=== PATIENT | female | born 1945 | race Caucasian/White ===

== ENCOUNTER 2016-09-15 15:14 | Emergency (ER) | payer MEDICARE ==
[~2016-09-15 15:14] MED LIST: Sodium Chloride 0.9% 1,000 ML BAG ONE; Sodium Chloride 0.9% 100 ML BAG ONE
[2016-09-15] MEDS ORDERED: Morphine Sulfate 2 MG/ML SYRINGE ONE (16:09)
[2016-09-15] MEDS ORDERED: Ketorolac Tromethamine 30 MG/ML VIAL ONE (16:09)
[2016-09-15] MEDS ORDERED: cefTRIAXone\\ROCEPHIN 1 GM VIAL ONE (16:10)
[2016-09-15 16:11] LABS: #Basophils 0.2 thou/uL (0.0-0.2); #Eosinphils 0.4 thou/uL (0.0-0.7); #Lymphocytes 1.2 thou/uL (1.20-3.40); #Monocytes 1.1 thou/uL (0.11-0.59); #Neutrophils 7.6 thou/uL (1.40-6.50); %Basophils 1.5 % (0.0-1.0); %Eosinophils 3.6 % (0.0-10.0); %Lymphocytes 11.5 % (21.0-51.0); %Neutrophils 72.5 % (42.0-75.0); Hemoglobin 11.7 g/dL (12.0-16.0); Mean Corpuscular HGB CONC 34.4 g/dL (32.0-36.0); Mean Corpuscular Volume 95.9 fl (81.0-99.0); Mean Platelet Volume 7.6 fL (7.4-10.4); Platelet Count 316 thou/uL (130-400); RBC Distribution Width 12.2 % (11.5-14.5); Red Blood Cell (RBC) Count 3.55 mill/uL (4.20-5.40); White Blood Cell (WBC) Count 10.4 thou/uL (4.8-10.8)
--- NOTE | 2016-09-15 16:24 | RAD ---
SINGLE VIEW CHEST: Date: 09/15/16 COMPARISON: 06/27/16. HISTORY: Dyspnea. FINDINGS: Single view of the chest shows a normal sized cardiomediastinal silhouette. There is no evidence of consolidation, mass, or pleural effusion. The bones are unremarkable. IMPRESSION: No evidence of acute cardiopulmonary disease. POS: [facility]
[2016-09-15 16:26] LABS: ALT (SGPT) 20 U/L (0-55); AST (SGOT) 31 U/L (5-34); Albumin 3.7 g/dL (3.4-4.8); Alkaline Phosphatase 79 U/L (40-150); Anion Gap 18 mmol/L (10-20); BUN (Urea Nitrogen) 5 mg/dL (9.8-20.1); Bilirubin, Total 0.7 mg/dL (0.2-1.2); Calc. Creatinine Clearance 0 mL/min (70-130); Calcium 9.3 mg/dL (7.8-10.44); Carbon Dioxide 27 mmol/L (23-31); Chloride 95 mmol/L (98-107); Estimated GFR-MDRD 66; Globulin 2.5 g/dL (2.4-3.5); Glucose 100 mg/dL (83-110); Protein, Total 6.2 g/dL (5.8-8.1); Sodium 137 mmol/L (136-145)
--- NOTE | 2016-09-15 17:10 | ERRECORD ---
[facility] EMERGENCY RECORD HPI SORE THROAT (16:04 LLDO) CHIEF COMPLAINT: Patient presents for evaluation of sore throat, Patient presents for evaluation of pt had back surgery earlier this week and was intubated. now, 2-3 days later, has a very sore throat, sores on tongue, dry mouth, low grade fever, and some shortness of breath. HISTORIAN: History provided by patient, History provided by patient's family. LOCATION: Symptoms are generalized. QUALITY: Pain is dull in nature, described as aching, described as BURNING THROAT. SEVERITY: Maximum severity of symptoms moderate, Currently symptoms are moderate. TIME COURSE: Gradual onset of symptoms, Symptoms are worsening, are constant. ASSOCIATED WITH: Associated with fever, Associated with dysphagia. EXACERBATED BY: Patient's condition exacerbated by activity, Patient's condition exacerbated by food. RELIEVED BY: Patient's condition relieved by cold fluids. ROS CONSTITUTIONAL: Historian reports fatigue, reports fever, reports malaise, reports weakness. (16:21 LLDO) EYES: Negative eye review of systems, Historian denies eye pain, denies eye redness, denies eye discharge. (16:27 LLDO) ENT: Historian reports otalgia, reports sore throat. SEE HPI...DRY MOUTH. (16:21 LLDO) CARDIOVASCULAR: Negative cardiovascular review of systems, Historian denies chest pain, no radiation, Historian denies diaphoresis, denies syncope. (16:27 LLDO) RESPIRATORY: Historian reports cough, cough is mild and dry. (16:21 LLDO) GI: Negative gastrointestinal review of systems, Historian denies abdominal pain, denies constipation, denies diarrhea, denies nausea, denies vomiting. (16:27 LLDO) GENITOURINARY FEMALE: Negative genitourinary review of systems, Historian denies dysuria, denies frequency, denies urgency. (16:27 LLDO) MUSCULOSKELETAL: Negative musculoskeletal review of systems, Historian denies arthralgias, denies back pain, denies injury, denies myalgias, denies neck pain. (16:27 LLDO) SKIN: Negative skin review of systems, Historian denies cellulitis, denies rash, denies skin changes, denies skin lesions. (16:27 LLDO) NEUROLOGIC: Negative neurologic review of systems, Historian denies confusion, denies dizziness, denies focal weakness, denies mental status changes. (16:27 LLDO) HEMO/LYMPHATIC: Normal hematologic/lymphatic system review, Historian denies abnormal blood clotting, denies gum bleeding, denies petechiae. (16:27 LLDO) &a-1R&a+25V*p+0X*[id number]*c202B*c15G*c2P*p-0X&a-25V&a+1R Name: Hazel Youssef : 1945 F71 MedRec: [id number] AcctNum: [id number] Prepared: Sat Sep 15, 2016 18:04 by Interface Page 1 of 4 pMD [facility] EMERGENCY RECORD ALLERGIC/IMMUNOLOGIC: Normal allergy/immunologic system review, Historian denies eczema, denies environmental allergies, denies food allergies. (16:27 LLDO) PSYCHIATRIC: Negative psychiatric review of systems, Historian denies alcohol abuse, denies anxiety, denies depression, denies drug abuse, denies hallucinations. (16:27 LLDO) NOTES: All systems reviewed, negative except as described above. (16:21 LLDO) PAST MEDICAL HISTORY MEDICAL HISTORY: Past medical history includes history of hyperlipidemia, history of hypertension. (15:25 JPER) FEMALE SURGICAL HISTORY: Surgical history of appendectomy, Surgical history of cholecystectomy, Surgical history of hysterectomy, Surgical history of spinal surgery, lumbar, sacral, Notes: DECOMPRESSION AND FUSION 09-10-16. (15:25 JPER) PSYCHIATRIC HISTORY: Notes: DENIES. (15:25 JPER) SOCIAL HISTORY: Patient drinks every day, less than 5 drinks per day, Patient denies drug use, Patient has no smoking history. (15:25 JPER) NOTES: Nursing records reviewed, Agree with nursing records, Medication list reviewed. (16:27 LLDO) KNOWN ALLERGIES latex (Unconfirmed): Reaction: itching Latex, Natural Rubber Sulfa (Sulfonamide Antibiotics) CURRENT MEDICATIONS (15:27 JPER) allopurinol: TABLET : Strength - 100 mg : ORAL Patient Dose: mg Oral once a day. atorvastatin: TABLET : Strength - 40 mg : ORAL Patient Dose: Unknown. Cardizem: TABLET : Strength - 120 mg : ORAL Patient Dose: 300 once a day (in the morning). CeleXA: TABLET : Strength - 20 mg : ORAL Patient Dose: 40. hydrochlorothiazide: TABLET : Strength - 25 mg : ORAL Patient Dose: Unknown. levothyroxine: TABLET : Strength - 100 mcg : ORAL Patient Dose: 125 once a day (in the morning). meTOPROLOL tartrate: TABLET : Strength - 50 mg : ORAL &a-1R&a+25V*p+0X*p1795P*c202B*c15G*c2P*p-0X&a-25V&a+1R Name: Hazel Youssef : 1945 F71 MedRec: [id number] AcctNum: [id number] Prepared: Sat Sep 15, 2016 18:04 by Interface Page 2 of 4 pMD [facility] EMERGENCY RECORD Patient Dose: Unknown. VITAL SIGNS VITAL SIGNS: BP: 180/60, Pulse: 80, Resp: 20, Temp: 99.7 (Tympanic), O2 sat: 94 on Room Air, Time: 09/15/2016 15:19. (15:19 JPER) BP: 173/86, Pulse: 82, Resp: 20, Temp: 99.7 (Tympanic), O2 sat: 95 on Room Air, Time: 09/15/2016 16:00. (16:00 JPER) BP: 140/60, Pulse: 72, Resp: 18, O2 sat: 94 on Room Air, Time: 09/15/2016 16:30. (16:30 JPER) BP: 152/69, Pulse: 74, Resp: 18, Temp: 99.6 (Tympanic), O2 sat: 94 on Room Air, Time: 09/15/2016 17:00. (17:00 JPER) BP: 156/78, Pulse: 84, Resp: 20, Temp: 99.6 (Tympanic), O2 sat: 95 on Room Air, Time: 09/15/2016 17:35. (17:35 JPER) PHYSICAL EXAM CONSTITUTIONAL: Vital Signs Reviewed, Patient afebrile, Pulse normal, Blood pressure, BP ELEVATED, Respiratory rate normal, Patient appears, uncomfortable, Patient appears, in moderate pain distress, Patient alert and oriented to person, place and time, Nursing notes reviewed. (16:23 LLDO) HEAD: Head exam normal, Head exam included findings of head atraumatic, normocephalic. (16:27 LLDO) EYES: Eye exam normal, Eye exam included findings of eyelids normal to inspection, Pupils equally round and reactive to light, Extraocular muscles intact. (16:27 LLDO) ENT: Ear exam normal, Nose exam normal, Pharynx, injected bilaterally, with swelling bilaterally, symmetrical, Uvula exam normal. (16:23 LLDO) NECK: Neck exam included findings of normal range of motion, Trachea midline, Thyroid normal, no meningeal signs, Cervical adenopathy, diffuse, multiple nodes, tender, swollen. (16:23 LLDO) RESPIRATORY CHEST: Respiratory exam included findings of no respiratory distress, Breath sounds clear, Chest exam included findings of chest movement symmetrical, Chest expansion equal. (16:23 LLDO) CARDIOVASCULAR: Cardiovascular assessment normal, Cardiovascular exam included findings of heart rate regular rate and rhythm, Heart sounds normal. (16:27 LLDO) ABDOMEN FEMALE: Abdominal exam normal, Abdominal exam included findings of abdomen nontender, Bowel sounds normal, no peritoneal signs. (16:27 LLDO) BACK: Back exam normal, Back exam included findings of normal inspection, range of motion normal. (16:27 LLDO) UPPER EXTREMITY: Upper extremity exam normal, Upper extremity exam included findings of inspection normal, Range of motion normal. (16:27 LLDO) LOWER EXTREMITY: Lower extremity exam normal, Lower extremity &a-1R&a+25V*p+0X*e4374L*c202B*c15G*c2P*p-0X&a-25V&a+1R Name: Hazel Youssef : 1945 F71 MedRec: [id number] AcctNum: [id number] Prepared: Sat Sep 15, 2016 18:04 by Interface Page 3 of 4 pMD [facility] EMERGENCY RECORD exam included findings of inspection normal, Range of motion normal. (16:27 LLDO) NEURO: Neuro exam normal, Neuro exam findings include patient oriented to person, place and time, Speech normal, Pasquale coma scale 15. (16:27 LLDO) SKIN: Skin exam normal, Skin exam included findings of skin warm, dry, and normal in color, no rash. (16:27 LLDO) PSYCHIATRIC: Psychiatric exam normal, Psychiatric exam included findings of patient oriented to person place and time, Normal affect. (16:27 LLDO) MEDICATION ADMINISTRATION SUMMARY Drug Name: *sodium chloride 0.9 % intravenous, Dose Ordered: 1 L, Route: IV Fluid Infusion, Status: Given, Time: 16:35 09/15/2016, Drug Name: Rocephin intravenous, Dose Ordered: 1 g, Route: IV Piggy Back, Status: Given, Time: 16:05 09/15/2016, Drug Name: Duramorph (PF), Dose Ordered: 2 mg, Route: IV Push, Status: Given, Time: 16:02 09/15/2016, Drug Name: Toradol intravenous, Dose Ordered: 15 mg, Route: IV Push, Status: Given, Time: 16:00 09/15/2016, *Additional information available in notes, Detailed record available in Medication Service section. PROBLEM LIST No recorded problems DIAGNOSIS (16:57 LLDO) FINAL: PRIMARY: Acute pharyngitis. PRESCRIPTION (16:59 LLDO) amoxicillin: CAPSULE (HARD, SOFT, ETC.) : 500 mg : ORAL : Quantity: 1 Unit: cap(s) Route: ORAL Schedule: 3 times a day Dispense: 30 May substitute. Refills: No Refills . NOTES: No Refills. Phenergan DM: SYRUP : : ORAL : Quantity: 1 Unit: teaspoon Route: ORAL Schedule: every 4 hours prn Dispense: 120 Unit: mL May substitute. Refills: 1 . NOTES: ^s=No Refills No Refills. DISPOSITION PATIENT: Disposition Type: Discharge, Disposition: *Discharge Home. (16:57 LLDO) Patient left the department. (18:02 JAROD) Iverson: JAROD=NAY Nolasco, Giulia CARL=MD Meme, Jose Luis &a-1R&a+25V*p+0X*[id number]*c202B*c15G*c2P*p-0X&a-25V&a+1R Name: Hazel Youssef : 1945 F71 MedRec: [id number] AcctNum: [id number] Prepared: Hong Sep 15, 2016 18:04 by Interface Page 4 of 4 pMD BENJI
--- NOTE | 2016-09-15 17:16 | PICIS ---
[facility] EMERGENCY RECORD TRIAGE (15:25 JPER) PATIENT: NAME: Hazel Youssef, AGE: 71, GENDER: female, : Tue 1945, TIME OF GREET: Sat Sep 15, 2016 15:15, PREFERRED LANGUAGE: Nepali, RACE: WHITE, ETHNICITY: Not or , ECODE BILLING MAP: [facility], SSN: [id number], Zip Code: [address], KG WEIGHT: 77.56, PHONE: , , , PERSON ID: [id number], PCP: MD ROBBIE, CICI. (15:25 JPER) COMPLAINT: SOB-ALLERGIC REACTION. (15:25 JPER) ADMISSION: URGENCY: 3 Urgent, ADMISSION SOURCE: Home, TRANSPORT: Walk-in, BED: ED -05. (15:25 JPER) ASSESSMENT: Assessment: PT HAS BEEN HAVING SOME NASAL CONGESTION OCC PRODUCTIVE COUGH AND DRY MOUTH SINCE DC FROM [facility] ON SATURDAY. (15:25 JPER) PAIN: Patient complains of pain described as, aching, on a scale 0-10 patient rates pain as 8, Pain is constant. (15:25 JPER) IMMUNIZATIONS: Flu vaccine up to date, Tetanus immunization up to date, Pneumococcal vaccine up to date. (15:25 JPER) SIRS SCORING: respiratory rate 12-24 (0), Mental Status altered: no (0). (15:25 JPER) TRIAGE SCREENING: Patient denies suicidal ideation, Patient denies presence of domestic violence. (15:25 JPER) PROVIDERS: TRIAGE NURSE: Giulia Nolasco RN. (15:25 JPER) VITAL SIGNS: BP 180/60, Pulse 80, Resp 20, Temp 99.7, (Tympanic), O2 Sat 94, on Room Air, Time 09/15/2016 15:19. (15:19 JPER) KNOWN ALLERGIES latex (Unconfirmed): Reaction: itching Latex, Natural Rubber Sulfa (Sulfonamide Antibiotics) CURRENT MEDICATIONS (15:27 JPER) allopurinol: TABLET : Strength - 100 mg : ORAL Patient Dose: mg Oral once a day. atorvastatin: TABLET : Strength - 40 mg : ORAL Patient Dose: Unknown. Cardizem: TABLET : Strength - 120 mg : ORAL Patient Dose: 300 once a day (in the morning). CeleXA: TABLET : Strength - 20 mg : ORAL Patient Dose: 40. hydrochlorothiazide: TABLET : Strength - 25 mg : ORAL Patient Dose: Unknown. levothyroxine: TABLET : Strength - 100 mcg : ORAL &a-1R&a+25V*p+0X*h8391U*c202B*c15G*c2P*p-0X&a-25V&a+1R Name: Hazel Youssef : 1945 F71 MedRec: [id number] AcctNum: [id number] Prepared: Sat Sep 15, 2016 18:11 by Interface Page 1 of 9 pMD [facility] EMERGENCY RECORD Patient Dose: 125 once a day (in the morning). meTOPROLOL tartrate: TABLET : Strength - 50 mg : ORAL Patient Dose: Unknown. VITAL SIGNS VITAL SIGNS: BP: 180/60, Pulse: 80, Resp: 20, Temp: 99.7 (Tympanic), O2 sat: 94 on Room Air, Time: 09/15/2016 15:19. (15:19 JPER) BP: 173/86, Pulse: 82, Resp: 20, Temp: 99.7 (Tympanic), O2 sat: 95 on Room Air, Time: 09/15/2016 16:00. (16:00 JPER) BP: 140/60, Pulse: 72, Resp: 18, O2 sat: 94 on Room Air, Time: 09/15/2016 16:30. (16:30 JPER) BP: 152/69, Pulse: 74, Resp: 18, Temp: 99.6 (Tympanic), O2 sat: 94 on Room Air, Time: 09/15/2016 17:00. (17:00 JPER) BP: 156/78, Pulse: 84, Resp: 20, Temp: 99.6 (Tympanic), O2 sat: 95 on Room Air, Time: 09/15/2016 17:35. (17:35 JPER) NURSING ASSESSMENT: RESPIRATORY /CHEST (16:49 JPER) CONSTITUTIONAL: Patient arrives ambulatory, Unsteady gait, Assistance to cart, History obtained from patient, Patient appears, uncomfortable, Patient cooperative, Patient alert, Oriented to person, place and time, Skin warm, Skin dry, Skin normal in color, Mucous membranes pink, Mucous membranes moist, Patient is well-groomed, Patient complains of UPPER RESP SX WITH SORE THROAT AND RIGHT EARACHE. PAIN: SORE THROAT. RESPIRATORY/CHEST: Breath sounds clear, Respiratory assessment findings include respiratory effort easy, Respirations regular, Conversing normally, Neck and chest exam findings include trachea midline, Chest expansion equal, Chest movement symmetrical, Associated with cough, OCCASIONALLY PRODUCTIVE MOSTLY DRY. ENT: and, dry, Able to swallow, Speech normal. NOTES: Emotional support needed and given, Patient tolerated procedure well. NURSING PROCEDURE: DISCHARGE NOTE (17:35 JPER) DISCHARGE: Patient discharged to home, in a wheelchair, family driving, accompanied by other family member, Summary of Care printed/ provided, Patient requested and was provided an electronic copy of Discharge Instructions, Transition record given to patient, Discharge instructions given to patient, Prescriptions given and instructions on side effects given, Above person(s) verbalized understanding of discharge instructions and follow-up care, Patient instructed not to drive home, Patient treated and evaluated by physician. BELONGINGS: Belongings remain with patient, Valuables remain with patient. &a-1R&a+25V*p+0X*h5943D*c202B*c15G*c2P*p-0X&a-25V&a+1R Name: Hazel Youssef : 1945 F71 MedRec: [id number] AcctNum: [id number] Prepared: Hong Sep 15, 2016 18:11 by Interface Page 2 of 9 pMD [facility] EMERGENCY RECORD NOTES: Emotional support needed and given, Patient tolerated procedure well. SAFETY: Notes: PT MUCH IMPROVED UPON DISCHARGE. NURSING PROCEDURE: IV PATIENT IDENITIFIER: Patient's identity verified by patient stating name, Patient's identity verified by hospital ID bracelet. (15:25 JPER) IV SITE 1: IV therapy indicated for medication administration, IV therapy indicated for BLOOD DRAW, IV established, to the right antecubital, using a 20 gauge catheter, in two attempts, IV site prepped with CHLOROPREP, Saline lock established, Labs drawn at time of placement, labeled in the presence of the patient and sent to lab, Blood cultures drawn at time of placement, labeled in the presence of the patient and sent to lab. (15:25 JPER) FOLLOW-UP SITE 1: After procedure, sterile transparent dressing applied. (15:25 JPER) After procedure, no drainage at IV site, After procedure, no swelling at IV site, After procedure, no redness at IV site, IV discontinued, due to patient being discharged, catheter intact. (17:35 JPER) ORDER DETAILS Order Name: B type Natriuretic Peptide, Status: Active, Time: 15:44 09/15/2016, User: MESERET, - Ordered for: MD Valentine Lloyd, - Entered by: MD Valentine Lloyd - Hong Sep 15, 2016 15:44, - Quantity: 1, Order Name: CBC with Differential, Status: Active, Time: 15:43 09/15/2016, User: MESERET, - Ordered for: MD Valentine Lloyd, - Entered by: MD Valentine Lloyd - Sat Sep 15, 2016 15:43, - Quantity: 1, Order Name: Comprehensive Metabolic Panel, Status: Active, Time: 15:43 09/15/2016, User: MESERET, - Ordered for: MD Valentine Lloyd, - Entered by: MD Valentine Lloyd - Sat Sep 15, 2016 15:43, - Quantity: 1, Order Name: Influenza A&B Ag Screen, Status: Active, Time: 15:43 09/15/2016, User: MESERET, - Ordered for: MD Valentine Lloyd, - Entered by: MD Valentine Lloyd - Hong Sep 15, 2016 15:43, - Quantity: 1, Order Name: Packed Cells - Leukoreduced, Status: Active, Time: 16:49 09/15/2016, User: MESERET, - Ordered for: MD Valentine Lloyd, - Entered by: MD Valentine Lloyd - Sat Sep 15, 2016 16:49, - Quantity: 1, Order Name: SALINE LOCK, Status: Done, Time: 15:48 09/15/2016, User: JAROD, &a-1R&a+25V*p+0X*f0969J*c202B*c15G*c2P*p-0X&a-25V&a+1R Name: Hazel Youssef : 1945 F71 MedRec: [id number] AcctNum: [id number] Prepared: Sat Sep 15, 2016 18:11 by Interface Page 3 of 9 D [facility] EMERGENCY RECORD - Ordered for: MD Valentine Lloyd, - Entered by: MD Valentine Lloyd - Sat Sep 15, 2016 15:44, - Quantity: 1, Order Name: Strep Group A Screen, Status: Active, Time: 15:43 09/15/2016, User: LLDO, - Ordered for: MD Valentine Lloyd, - Entered by: MD Valentine Lloyd - Sat Sep 15, 2016 15:43, - Quantity: 1, Order Name: XR Chest Pa & Lat STANDARD, Status: Canceled, Time: 15:50 09/15/2016, User: System, - Ordered for: MD Valentine Lloyd, - Entered by: MD Valentine Lloyd - Sat Sep 15, 2016 15:41, - Quantity: 1. MEDICATION ADMINISTRATION SUMMARY Drug Name: *sodium chloride 0.9 % intravenous, Dose Ordered: 1 L, Route: IV Fluid Infusion, Status: Given, Time: 16:35 09/15/2016, Drug Name: Rocephin intravenous, Dose Ordered: 1 g, Route: IV Piggy Back, Status: Given, Time: 16:05 09/15/2016, Drug Name: Duramorph (PF), Dose Ordered: 2 mg, Route: IV Push, Status: Given, Time: 16:02 09/15/2016, Drug Name: Toradol intravenous, Dose Ordered: 15 mg, Route: IV Push, Status: Given, Time: 16:00 09/15/2016, *Additional information available in notes, Detailed record available in Medication Service section. MEDICATION SERVICE Duramorph (PF): Order: Duramorph (PF) (morphine sulfate/preservative free) - Dose: 2 mg : IV Push Schedule: Now Ordered by: Jose Luis Valentine MD Entered by: Jose Luis Valentine MD [facility] Sep 15, 2016 15:46 Documented as given by: Giulia Nolasco RN [facility] Sep 15, 2016 16:02 Patient, Medication, Dose, Route and Time verified prior to administration. Amount given: 2MG, IV SITE #1 IVP, subsequent different medication, Slowly, Catheter placement confirmed via flush prior to administration, IV site without signs or symptoms of infiltration during medication administration, No swelling during administration, No drainage during administration, IV flushed after administration, Correct patient, time, route, dose and medication confirmed prior to administration, Patient advised of actions and side-effects prior to administration, Allergies confirmed and medications reviewed prior to administration, Administered by DERIK TEE, Patient in position of comfort, Side rails up, Cart in lowest position, Family at bedside. Rocephin intravenous: Order: Rocephin intravenous (ceftriaxone sodium) - Dose: 1 g : IV Piggy Back Schedule: Now Ordered by: Jose Luis Valentine MD &a-1R&a+25V*p+0X*z3891B*c202B*c15G*c2P*p-0X&a-25V&a+1R Name: Hazel Youssef : 1945 F71 MedRec: [id number] AcctNum: [id number] Prepared: [facility] Sep 15, 2016 18:11 by Interface Page 4 of 9 D [facility] EMERGENCY RECORD Entered by: Jose Luis Valentine MD Sat Sep 15, 2016 15:48 Documented as given by: Giulia Nolasco RN [facility] Sep 15, 2016 16:05 Patient, Medication, Dose, Route and Time verified prior to administration. Amount given: 1GM, IV SITE #1 IVPB or drip, initial infusion, IVPB mixed in: 100ml, Fluid: 0.9NS, via primary tubing, at 200 ml/hr, Catheter placement confirmed via flush prior to administration, IV site without signs or symptoms of infiltration during medication administration, No swelling during administration, No drainage during administration, IV flushed after administration, Correct patient, time, route, dose and medication confirmed prior to administration, Patient advised of actions and side-effects prior to administration, Allergies confirmed and medications reviewed prior to administration, Administered by DERIK TEE, Patient in position of comfort, Side rails up, Cart in lowest position, Family at bedside. : Follow Up : _IV SITE #1:_, Medication infusion discontinued, on Sat Sep 15, 2016 16:35, 30 minutes, ., Total amount infused: 100ML. (16:35 JPER) sodium chloride 0.9 % intravenous: Order: sodium chloride 0.9 % intravenous (0.9 % sodium chloride) - Dose: 1 L : IV Fluid Infusion Notes: (Bolus) after bolus, lock Ordered by: Jose Luis Valentine MD Entered by: Jose Luis Valentine MD [facility] Sep 15, 2016 15:51 Documented as given by: Giulia Nolasco RN [facility] Sep 15, 2016 16:35 Patient, Medication, Dose, Route and Time verified prior to administration. Amount given: 1000ML, IV SITE #1 IV fluids established for hydration, IV SITE #1 into right antecubital, IV SITE #1 1st bag hung, amount 1 Liter hung, IV SITE #1 bolus of 1000 ml established, IV SITE #1 Rate of bolus, wide open, via primary tubing, Catheter placement confirmed via flush prior to administration, IV site without signs or symptoms of infiltration during medication administration, No swelling during administration, No drainage during administration, IV flushed after administration, Correct patient, time, route, dose and medication confirmed prior to administration, Patient advised of actions and side-effects prior to administration, Allergies confirmed and medications reviewed prior to administration, Administered by DERIK TEE, Patient in position of comfort, Side rails up, Cart in lowest position, Family at bedside. : Follow Up : _IV SITE #1:_, IV fluid infusion discontinued, on Sat Sep 15, 2016 17:35, Total fluid hydration time IV site 1 1 hour, ., Total amount infused: 1000ML, IV Discontinued with catheter intact, Advised not to ambulate without assistance, Patient in position of comfort, Side rails up, Cart in lowest position, Family at bedside. (17:35 JPER) Toradol intravenous: Order: Toradol intravenous (ketorolac tromethamine) - Dose: 15 mg : IV Push Schedule: Now Ordered by: Jose Luis Valentine MD &a-1R&a+25V*p+0X*k8246S*c202B*c15G*c2P*p-0X&a-25V&a+1R Name: Hazel Youssef : 1945 F71 MedRec: [id number] AcctNum: [id number] Prepared: [facility] Sep 15, 2016 18:11 by Interface Page 5 of 9 pMD [facility] EMERGENCY RECORD Entered by: Jose Luis Valentine MD Sat Sep 15, 2016 15:46 Documented as given by: Giulia Nolasco RN Sat Sep 15, 2016 16:00 Patient, Medication, Dose, Route and Time verified prior to administration. Amount given: 15MG, Amount wasted: 15MG, IV SITE #1 IVP, initial medication, Slowly, Catheter placement confirmed via flush prior to administration, IV site without signs or symptoms of infiltration during medication administration, No swelling during administration, No drainage during administration, IV flushed after administration, Correct patient, time, route, dose and medication confirmed prior to administration, Patient advised of actions and side-effects prior to administration, Allergies confirmed and medications reviewed prior to administration, Administered by DERIK TEE, Patient in position of comfort, Side rails up, Cart in lowest position, Family at bedside. HPI SORE THROAT (16:04 LLDO) CHIEF COMPLAINT: Patient presents for evaluation of sore throat, Patient presents for evaluation of pt had back surgery earlier this week and was intubated. now, 2-3 days later, has a very sore throat, sores on tongue, dry mouth, low grade fever, and some shortness of breath. HISTORIAN: History provided by patient, History provided by patient's family. LOCATION: Symptoms are generalized. QUALITY: Pain is dull in nature, described as aching, described as BURNING THROAT. SEVERITY: Maximum severity of symptoms moderate, Currently symptoms are moderate. TIME COURSE: Gradual onset of symptoms, Symptoms are worsening, are constant. ASSOCIATED WITH: Associated with fever, Associated with dysphagia. EXACERBATED BY: Patient's condition exacerbated by activity, Patient's condition exacerbated by food. RELIEVED BY: Patient's condition relieved by cold fluids. ROS CONSTITUTIONAL: Historian reports fatigue, reports fever, reports malaise, reports weakness. (16:21 LLDO) EYES: Negative eye review of systems, Historian denies eye pain, denies eye redness, denies eye discharge. (16:27 LLDO) ENT: Historian reports otalgia, reports sore throat. SEE HPI...DRY MOUTH. (16:21 LLDO) CARDIOVASCULAR: Negative cardiovascular review of systems, Historian denies chest pain, no radiation, Historian denies diaphoresis, denies syncope. (16:27 LLDO) RESPIRATORY: Historian reports cough, cough is mild and dry. (16:21 LLDO) GI: Negative gastrointestinal review of systems, Historian denies abdominal pain, denies constipation, denies diarrhea, denies nausea, denies vomiting. (16:27 LLDO) &a-1R&a+25V*p+0X*v6799T*c202B*c15G*c2P*p-0X&a-25V&a+1R Name: Hazel Youssef : 1945 F71 MedRec: [id number] AcctNum: [id number] Prepared: Sat Sep 15, 2016 18:11 by Interface Page 6 of 9 pMD [facility] EMERGENCY RECORD GENITOURINARY FEMALE: Negative genitourinary review of systems, Historian denies dysuria, denies frequency, denies urgency. (16:27 LLDO) MUSCULOSKELETAL: Negative musculoskeletal review of systems, Historian denies arthralgias, denies back pain, denies injury, denies myalgias, denies neck pain. (16:27 LLDO) SKIN: Negative skin review of systems, Historian denies cellulitis, denies rash, denies skin changes, denies skin lesions. (16:27 LLDO) NEUROLOGIC: Negative neurologic review of systems, Historian denies confusion, denies dizziness, denies focal weakness, denies mental status changes. (16:27 LLDO) HEMO/LYMPHATIC: Normal hematologic/lymphatic system review, Historian denies abnormal blood clotting, denies gum bleeding, denies petechiae. (16:27 LLDO) ALLERGIC/IMMUNOLOGIC: Normal allergy/immunologic system review, Historian denies eczema, denies environmental allergies, denies food allergies. (16:27 LLDO) PSYCHIATRIC: Negative psychiatric review of systems, Historian denies alcohol abuse, denies anxiety, denies depression, denies drug abuse, denies hallucinations. (16:27 LLDO) NOTES: All systems reviewed, negative except as described above. (16:21 LLDO) PAST MEDICAL HISTORY MEDICAL HISTORY: Past medical history includes history of hyperlipidemia, history of hypertension. (15:25 JPER) FEMALE SURGICAL HISTORY: Surgical history of appendectomy, Surgical history of cholecystectomy, Surgical history of hysterectomy, Surgical history of spinal surgery, lumbar, sacral, Notes: DECOMPRESSION AND FUSION 09-10-16. (15:25 JPER) PSYCHIATRIC HISTORY: Notes: DENIES. (15:25 JPER) SOCIAL HISTORY: Patient drinks every day, less than 5 drinks per day, Patient denies drug use, Patient has no smoking history. (15:25 JPER) NOTES: Nursing records reviewed, Agree with nursing records, Medication list reviewed. (16:27 LLDO) PHYSICAL EXAM CONSTITUTIONAL: Vital Signs Reviewed, Patient afebrile, Pulse normal, Blood pressure, BP ELEVATED, Respiratory rate normal, Patient appears, uncomfortable, Patient appears, in moderate pain distress, Patient alert and oriented to person, place and time, Nursing notes reviewed. (16:23 LLDO) HEAD: Head exam normal, Head exam included findings of head atraumatic, normocephalic. (16:27 LLDO) EYES: Eye exam normal, Eye exam included findings of eyelids normal to inspection, Pupils equally round and reactive to light, &a-1R&a+25V*p+0X*p5260A*c202B*c15G*c2P*p-0X&a-25V&a+1R Name: Hazel Youssef : 1945 F71 MedRec: [id number] AcctNum: [id number] Prepared: Hong Sep 15, 2016 18:11 by Interface Page 7 of 9 pMD [facility] EMERGENCY RECORD Extraocular muscles intact. (16:27 LLDO) ENT: Ear exam normal, Nose exam normal, Pharynx, injected bilaterally, with swelling bilaterally, symmetrical, Uvula exam normal. (16:23 LLDO) NECK: Neck exam included findings of normal range of motion, Trachea midline, Thyroid normal, no meningeal signs, Cervical adenopathy, diffuse, multiple nodes, tender, swollen. (16:23 LLDO) RESPIRATORY CHEST: Respiratory exam included findings of no respiratory distress, Breath sounds clear, Chest exam included findings of chest movement symmetrical, Chest expansion equal. (16:23 LLDO) CARDIOVASCULAR: Cardiovascular assessment normal, Cardiovascular exam included findings of heart rate regular rate and rhythm, Heart sounds normal. (16:27 LLDO) ABDOMEN FEMALE: Abdominal exam normal, Abdominal exam included findings of abdomen nontender, Bowel sounds normal, no peritoneal signs. (16:27 LLDO) BACK: Back exam normal, Back exam included findings of normal inspection, range of motion normal. (16:27 LLDO) UPPER EXTREMITY: Upper extremity exam normal, Upper extremity exam included findings of inspection normal, Range of motion normal. (16:27 LLDO) LOWER EXTREMITY: Lower extremity exam normal, Lower extremity exam included findings of inspection normal, Range of motion normal. (16:27 LLDO) NEURO: Neuro exam normal, Neuro exam findings include patient oriented to person, place and time, Speech normal, Pasquale coma scale 15. (16:27 LLDO) SKIN: Skin exam normal, Skin exam included findings of skin warm, dry, and normal in color, no rash. (16:27 LLDO) PSYCHIATRIC: Psychiatric exam normal, Psychiatric exam included findings of patient oriented to person place and time, Normal affect. (16:27 LLDO) EVENTS TRANSFER: Triage to Emergency Main ED -05. (Sat Sep 15, 2016 15:25 JPER) Removed from Emergency Main ED -05. (18:02 JPER) PROBLEM LIST No recorded problems DIAGNOSIS (16:57 LLDO) FINAL: PRIMARY: Acute pharyngitis. DISPOSITION PATIENT: Disposition Type: Discharge, Disposition: *Discharge Home. (16:57 LLDO) Patient left the department. (18:02 JPER) &a-1R&a+25V*p+0X*n5455I*c202B*c15G*c2P*p-0X&a-25V&a+1R Name: Hazel Youssef : 1945 F71 MedRec: [id number] AcctNum: [id number] Prepared: Sat Sep 15, 2016 18:11 by Interface Page 8 of 9 pMD [facility] EMERGENCY RECORD INSTRUCTION (17:00 LLDO) DISCHARGE: PHARYNGITIS, STREP (PRESUMED). FOLLOWUP: MD ROBBIE, CICI, [facility], [address] [place] [id number], [phone], Follow up with Primary Care Physician in 7-10 days. SPECIAL: Follow-up with your PCP. PRESCRIPTION (16:59 LLDO) amoxicillin: CAPSULE (HARD, SOFT, ETC.) : 500 mg : ORAL : Quantity: 1 Unit: cap(s) Route: ORAL Schedule: 3 times a day Dispense: 30 May substitute. Refills: No Refills . NOTES: No Refills. Phenergan DM: SYRUP : : ORAL : Quantity: 1 Unit: teaspoon Route: ORAL Schedule: every 4 hours prn Dispense: 120 Unit: mL May substitute. Refills: 1 . NOTES: ^s=No Refills No Refills. IMAGING *DISCHARGE INSTRUCTIONS RECEIPT: Image captured from scanner. (17:58 JPER) *SUPPLY CHARGE SHEET: Image captured from scanner. (17:59 JPER) ADMIN DIGITAL SIGNATURE: MD Valentine Lloyd. (17:00 LLDO) NAY Nolasco Jana. (18:04 JPER) Iverson: JPER=NAY Nolasco Jana LLDO=MD Valentine Lloyd &a-1R&a+25V*p+0X*g9994J*c202B*c15G*c2P*p-0X&a-25V&a+1R Name: Hazel Youssef : 1945 F71 MedRec: [id number] AcctNum: [id number] Prepared: [facility] Sep 15, 2016 18:11 by Interface Page 9 of 9 pMD [facility] MEDICATION RECONCILIATION You were seen in the Emergency Department on: Sat Sep 15, 2016 KNOWN ALLERGIES latex (Unconfirmed): Reaction: itching Latex, Natural Rubber Sulfa (Sulfonamide Antibiotics) MEDICATIONS GIVEN WHILE IN THE EMERGENCY DEPARTMENT Duramorph (PF) (morphine sulfate/preservative free) - Dose: 2 milligram(s) : IV Push Toradol intravenous (ketorolac tromethamine) - Dose: 15 milligram(s) : IV Push Rocephin intravenous (ceftriaxone sodium) - Dose: 1 gram(s) : IV Piggy Back sodium chloride 0.9 % intravenous (0.9 % sodium chloride) - Dose: 1 liter(s) : IV Fluid Infusion HOME MEDICATIONS CONTINUE PRESCRIBED allopurinol : TABLET : Strength - 100 mg : ORAL Continue as prescribed Patient had been taking: mg Oral once a day. atorvastatin : TABLET : Strength - 40 mg : ORAL Continue as prescribed Patient had been taking: Dose unknown Cardizem : TABLET : Strength - 120 mg : ORAL Continue as prescribed Patient had been takin once a day (in the morning). CeleXA : TABLET : Strength - 20 mg : ORAL Continue as prescribed Patient had been takin. hydrochlorothiazide : TABLET : Strength - 25 mg : ORAL Continue as prescribed Patient had been taking: Dose unknown levothyroxine : TABLET : Strength - 100 mcg : ORAL Continue as prescribed Patient had been takin once a day (in the morning). &a-1R&a+25V*p+0X*h3426I*c202B*c15G*c2P*p-0X&a-25V&a+1R Name: Hazel Youssef : 1945 F71 MedRec: [id number] AcctNum: [id number] Prepared: Sat Sep 15, 2016 18:11 by Interface pMD [facility] MEDICATION RECONCILIATION meTOPROLOL tartrate : TABLET : Strength - 50 mg : ORAL Continue as prescribed Patient had been taking: Dose unknown Notes from the emergency department Reviewed with family Reviewed with patient PRESCRIPTIONS (2) Printed (2) amoxicillin : CAPSULE (HARD, SOFT, ETC.) : 500 mg : ORAL Quantity: 1, Unit: cap(s), Route: ORAL, Schedule: 3 times a day, Dispense: 30 &a-1R&a+25V*p+0X*g9625C*c202B*c15G*c2P*p-0X&a-25V&a+1R Name: Hazel Youssef : 1945 F71 MedRec: [id number] AcctNum: [id number] Prepared: Sat Sep 15, 2016 18:11 by Interface [facility]
== END 2016-09-15 17:35 | disposition home or self-care (01) ==
LOC: MADERS 15:14
DX: J02.9 Acute pharyngitis, unspecified (principal); I10 Essential (primary) hypertension; E78.5 Hyperlipidemia, unspecified
CPT/HCPCS: 36415; 71010; 80053; 83880; 85025; 87430; 96361; 96365; 96375; J0696; J1885; J2270; J7050

== ENCOUNTER 2016-12-04 09:53 | Emergency (ER) | payer MEDICARE ==
--- NOTE | 2016-12-04 10:54 | RAD ---
TWO VIEWS OF THE LEFT HUMERUS: Indication: Trauma. Comparison: None. FINDINGS: No acute fracture or subluxation is evident. Soft tissues are normal appearing. IMPRESSION: No acute abnormality. POS: [facility]
== END 2016-12-04 11:15 | disposition home or self-care (01) ==
LOC: MADERS 09:53
DX: S05.12XA Contusion of eyeball and orbital tissues, left eye, initial encounter (principal); S40.022A Contusion of left upper arm, initial encounter; E78.5 Hyperlipidemia, unspecified; I10 Essential (primary) hypertension; Z79.2 Long term (current) use of antibiotics; Z79.899 Other long term (current) drug therapy; W22.8XXA Striking against or struck by other objects, initial encounter

== ENCOUNTER 2017-03-06 12:06 | Outpatient (CLI) | payer MEDICARE ==
--- NOTE | 2017-03-06 13:23 | RAD ---
THREE VIEWS OF THE LEFT SHOULDER HISTORY: Left shoulder pain for two years. COMPARISON: None. FINDINGS: Three views of the left shoulder show no evidence of acute fracture or dislocation. A very small os teophyte is seen in the glenoid. No other degenerative changes are seen. IMPRESSION: Mild left shoulder glenohumeral osteoarthritis without acute osseous abnormality. POS: [facility]
== END 2017-03-06 12:07 | disposition home or self-care (01) ==
LOC: MADRAD 12:06
PROVIDERS: ATTEND Family Medicine
DX: M25.512 Pain in left shoulder (principal); G89.29 Other chronic pain; M19.012 Primary osteoarthritis, left shoulder

== ENCOUNTER 2017-03-14 10:48 | Outpatient (CLI) | payer MEDICARE ==
[2017-03-14 17:40] LABS: HBCM Index 0.06 S/CO (0-0.79); HBSAg Index 0.25 S/CO (0-0.99); Hep A IgM AB Non-Reactive (NonReactive); Hep A IgM S/CO 0.09 S/CO (0-0.79); Hep B Surf Ag Non-Reactive S/CO (NonReactive); Hep C IgG Ab Non-Reactive (NonReactive); Hep C Index 0.16 S/CO (0-0.79); Hepatitis B Core IGM Abs Non-Reactive (NonReactive)
== END 2017-03-14 10:49 | disposition home or self-care (01) ==
LOC: MADLABBHPM 10:48
PROVIDERS: ATTEND Family Medicine
DX: Z01.419 Encounter for gynecological examination (general) (routine) without abnormal findings (principal)
CPT/HCPCS: 36415; 80074

== ENCOUNTER 2017-09-25 11:18 | Outpatient (CLI) | payer MEDICARE ==
[2017-09-25 12:03] LABS: ALT (SGPT) 82 U/L (8-55); AST (SGOT) 76 U/L (5-34); Albumin 4.1 g/dL (3.4-4.8); Alkaline Phosphatase 124 U/L (40-150); Anion Gap 14 mmol/L (10-20); BUN (Urea Nitrogen) 7 mg/dL (9.8-20.1); Bilirubin, Total 0.8 mg/dL (0.2-1.2); Calc. Creatinine Clearance 0 mL/min (70-130); Calcium 9.3 mg/dL (7.8-10.44); Carbon Dioxide 26 mmol/L (23-31); Cardiac Risk 2.9 (Less than 4.5); Chloride 107 mmol/L (98-107); Cholesterol 145 mg/dl (< 200 Desired); Estimated GFR-MDRD 67; Globulin 2.7 g/dL (2.4-3.5); Glucose 111 mg/dL (83-110); HDL Cholesterol 50 mg/dL (>60 Neg Risk); LDL Cholesterol, Calculated 64 mg/dL; Potassium 4.2 mmol/L (3.5-5.1); Protein, Total 6.8 g/dL (6.0-8.3); Sodium 143 mmol/L (136-145); Triglycerides 156 mg/dL (Less than 150)
== END 2017-09-25 11:19 | disposition home or self-care (01) ==
LOC: MADLABBHPM 11:18
PROVIDERS: ATTEND Family Medicine
DX: E78.5 Hyperlipidemia, unspecified (principal); E03.9 Hypothyroidism, unspecified; I10 Essential (primary) hypertension
CPT/HCPCS: 36415; 80053; 80061; 84443

== ENCOUNTER 2020-09-07 20:30 | Emergency (ER) | payer MEDICARE ==
[2020-09-07] MEDS ORDERED: Promethazine HCl 25 MG/ML VIAL ONE (21:38)
[2020-09-07] MEDS ORDERED: Sodium Chloride 0.9% 1,000 ML ONE (21:38)
[2020-09-07 21:49] LABS: #Basophils 0.1 thou/uL (0.0-0.2); #Eosinphils 0.1 thou/uL (0.0-0.7); #Lymphocytes 0.8 thou/uL (1.20-3.40); #Monocytes 0.9 thou/uL (0.11-0.59); #Neutrophils 9.9 thou/uL (1.40-6.50); %Eosinophils 0.5 % (0.0-10.0); %Lymphocytes 7.1 % (21.0-51.0); %Monocytes 7.8 % (0.0-10.0); %Neutrophils 83.7 % (42.0-75.0); Hemoglobin 13.6 g/dL (12.0-16.0); Mean Corpuscular HGB CONC 33.6 g/dL (32.0-36.0); Mean Corpuscular Hemoglobin 31.6 pg (27.0-31.0); Mean Corpuscular Volume 94.2 fL (78.0-98.0); Mean Platelet Volume 7.2 fL (7.4-10.4); Platelet Count 278 thou/uL (130-400); RBC Distribution Width 11.6 % (11.5-14.5); White Blood Cell (WBC) Count 11.8 thou/uL (4.8-10.8)
[2020-09-07 22:08] LABS: ALT (SGPT) 86 U/L (8-55); AST (SGOT) 123 U/L (5-34); Alkaline Phosphatase 110 U/L (40-110); Anion Gap 16 mmol/L (10-20); BUN (Urea Nitrogen) 13 mg/dL (9.8-20.1); Bilirubin, Total 0.7 mg/dL (0.2-1.2); Calc. Creatinine Clearance 0 mL/min (70-130); Calcium 8.7 mg/dL (7.8-10.44); Carbon Dioxide 25 mmol/L (23-31); Chloride 103 mmol/L (98-107); Globulin 2.9 g/dL (2.4-3.5); Glucose 112 mg/dL (83-110); Potassium 3.5 mmol/L (3.5-5.1); Protein, Total 6.9 g/dL (5.8-8.1); Sodium 140 mmol/L (136-145)
[2020-09-08 14:21] LABS: SARS-CoV-2 PCR by NAA Not Detected (NotDetected)
[2020-09-08 14:44] LABS: Bilirubin Negative (Negative); Blood, Urine Negative (Negative); Glucose, Urine (Dipstick) Negative (Negative); Ketone, Urine Trace mg/dL (Negative); Leukocyte Large (Negative); Nitrite Negative (Negative); Protein, Urine (Dipstick) Negative (Neg-Trace); Urobilinogen 0.2 mg/dL (Less than 2); pH, Urine 6.5 (5.0-9.0)
[2020-09-08 14:45] LABS: Clarity Hazy (Clear)
[2020-09-08 14:49] LABS: Bacteria/HPF Rare-Few HPF (None Seen); RBC/HPF 0-3 HPF (0-3); WBC/HPF 21-50 HPF (0-3)
== END 2020-09-07 23:22 | disposition home or self-care (01) ==
LOC: MADERS 20:30
DX: K52.9 Noninfective gastroenteritis and colitis, unspecified (principal); Z20.822 Contact with and (suspected) exposure to COVID-19; E78.5 Hyperlipidemia, unspecified; I10 Essential (primary) hypertension; Z79.899 Other long term (current) drug therapy
CPT/HCPCS: 80053; 81003; 81015; 82274; 83605; 83630; 85025; 87045; 87046; 87324; 87427; 87449; 87635; 96365; J2550; J7050; U0003; U0005

== ENCOUNTER 2021-02-06 10:13 | Outpatient (CLI) | payer MEDICARE ==
[2021-02-06 10:42] LABS: ALT (SGPT) 17 U/L (8-55); AST (SGOT) 28 U/L (5-34); Albumin 4.1 g/dL (3.4-4.8); Alkaline Phosphatase 70 U/L (40-110); Anion Gap 14 mmol/L (10-20); BUN (Urea Nitrogen) 11 mg/dL (9.8-20.1); Bilirubin, Total 0.8 mg/dL (0.2-1.2); Calc. Creatinine Clearance 0 mL/min (70-130); Calcium 9.4 mg/dL (7.8-10.44); Carbon Dioxide 27 mmol/L (23-31); Chloride 96 mmol/L (98-107); Cholesterol 201 mg/dl (< 200 Desired); Globulin 2.8 g/dL (2.4-3.5); Glucose 114 mg/dL (83-110); HDL Cholesterol 66 mg/dL (>60 Neg Risk); LDL Cholesterol, Calculated 115 mg/dL; Potassium 4.4 mmol/L (3.5-5.1); Protein, Total 6.9 g/dL (5.8-8.1); Sodium 133 mmol/L (136-145); Triglycerides 100 mg/dL (Less than 150)
[2021-02-06 11:02] LABS: Thyroid Stimulating Hormone 0.2573 uIU/mL (0.35-4.94)
[2021-02-06 17:35] LABS: Free T4 (Free Thyroxine) 1.22 ng/dL (0.70-1.48)
== END 2021-02-06 10:14 | disposition home or self-care (01) ==
LOC: MADLAB 10:13
PROVIDERS: ATTEND Family Medicine
DX: E03.9 Hypothyroidism, unspecified (principal); I10 Essential (primary) hypertension; E78.5 Hyperlipidemia, unspecified
CPT/HCPCS: 36415; 80053; 80061; 84439; 84443; 84481

== ENCOUNTER 2021-12-29 14:04 | Outpatient (CLI) | payer MEDICARE | END 2021-12-29 14:05 | disposition home or self-care (01) | LOC: MADLAB 14:04 | PROVIDERS: ATTEND Family Medicine | DX: M25.512 Pain in left shoulder (principal) ==

== ENCOUNTER 2022-01-25 17:02 | Emergency (ER) | payer OTHER, MEDICARE | END 2022-01-25 18:28 | disposition home or self-care (01) | LOC: MADERS 17:02 | DX: S00.01XA Abrasion of scalp, initial encounter (principal); S09.90XA Unspecified injury of head, initial encounter; W01.119A Fall on same level from slipping, tripping and stumbling with subsequent striking against unspecified sharp object, initial encounter; E78.5 Hyperlipidemia, unspecified; I10 Essential (primary) hypertension; Z79.899 Other long term (current) drug therapy | CPT/HCPCS: 70450 ==

== ENCOUNTER 2022-02-09 11:49 | Emergency (ER) | payer MEDICARE ==
[2022-02-09 13:01] LABS: #Basophils 0.1 thou/uL (0.0-0.2); #Eosinphils 0.1 thou/uL (0.0-0.7); #Lymphocytes 1.9 thou/uL (1.20-3.40); #Monocytes 0.9 thou/uL (0.11-0.59); #Neutrophils 7.1 thou/uL (1.40-6.50); %Basophils 0.9 % (0.0-1.0); %Eosinophils 1.1 % (0.0-10.0); %Lymphocytes 18.4 % (21.0-51.0); %Neutrophils 70.6 % (42.0-75.0); Hemoglobin 13.2 g/dL (12.0-16.0); Mean Corpuscular HGB CONC 32.6 g/dL (32.0-36.0); Mean Corpuscular Hemoglobin 31.4 pg (27.0-31.0); Mean Corpuscular Volume 96.2 fL (78.0-98.0); Mean Platelet Volume 9.4 fL (7.4-10.4); Platelet Count 235 thou/uL (130-400); RBC Distribution Width 13.2 % (11.5-14.5)
[2022-02-09 13:19] LABS: ALT (SGPT) 21 U/L (8-55); AST (SGOT) 25 U/L (5-34); Albumin 4.4 g/dL (3.4-4.8); Alkaline Phosphatase 62 U/L (40-110); Anion Gap 15 mmol/L (10-20); BUN (Urea Nitrogen) 8 mg/dL (9.8-20.1); Bilirubin, Total 1.2 mg/dL (0.2-1.2); Calc. Creatinine Clearance 0 mL/min (70-130); Calcium 9.5 mg/dL (7.8-10.44); Carbon Dioxide 24 mmol/L (23-31); Chloride 103 mmol/L (98-107); Estimated GFR 65; Globulin 2.9 g/dL (2.4-3.5); Glucose 120 mg/dL (83-110); Potassium 3.9 mmol/L (3.5-5.1); Protein, Total 7.3 g/dL (5.8-8.1); Sodium 138 mmol/L (136-145)
[2022-02-09] MEDS ORDERED: Acetaminophen 325 MG TAB ONE (13:59)
== END 2022-02-09 14:06 | disposition home or self-care (01) ==
LOC: MADERS 11:49
DX: F19.980 Other psychoactive substance use, unspecified with psychoactive substance-induced anxiety disorder (principal); I10 Essential (primary) hypertension; E78.5 Hyperlipidemia, unspecified
CPT/HCPCS: 71045; 80053; 83605; 83880; 84443; 84484; 85025; 85379; 93005; 94760

== ENCOUNTER 2023-02-19 17:51 | Emergency (ER) | payer MEDICARE ==
[2023-02-19 18:42] LABS: #Basophils 0.1 thou/uL (0.0-0.2); #Lymphocytes 1.5 thou/uL (1.20-3.40); #Monocytes 0.6 thou/uL (0.11-0.59); #Neutrophils 8.4 thou/uL (1.40-6.50); %Basophils 1.3 % (0.0-1.0); %Eosinophils 0.4 % (0.0-10.0); %Lymphocytes 13.9 % (21.0-51.0); %Monocytes 5.7 % (0.0-10.0); %Neutrophils 78.7 % (42.0-75.0); Hemoglobin 13.7 g/dL (12.0-16.0); Mean Corpuscular HGB CONC 34.5 g/dL (32.0-36.0); Mean Corpuscular Volume 92.7 fl (78.0-98.0); Mean Platelet Volume 7.8 fL (7.4-10.4); Platelet Count 329 10x3/uL (130-400); Red Blood Cell (RBC) Count 4.27 mill/uL (4.20-5.40); White Blood Cell (WBC) Count 10.7 10x3/uL (4.8-10.8)
[2023-02-19 19:30] LABS: Chloride 87 mmol/L (98-107); Potassium 3.8 mmol/L (3.5-5.1); Sodium 124 mmol/L (136-145)
[2023-02-19 19:31] LABS: ALT (SGPT) 24 U/L (8-55); AST (SGOT) 27 U/L (5-34); Albumin 4.4 g/dL (3.4-4.8); Alkaline Phosphatase 76 U/L (40-110); Anion Gap 21 mmol/L (10-20); BUN (Urea Nitrogen) 16 mg/dL (9.8-20.1); Bilirubin, Total 0.7 mg/dL (0.2-1.2); Calc. Creatinine Clearance 0 mL/min (70-130); Calcium 9.7 mg/dL (7.8-10.44); Carbon Dioxide 20 mmol/L (23-31); Estimated GFR 40; Globulin 2.9 g/dL (2.4-3.5); Glucose 114 mg/dL (83-110); Magnesium 1.5 mg/dL (1.6-2.6); Protein, Total 7.3 g/dL (5.8-8.1)
[2023-02-19] MEDS ORDERED: Magnesium Oxide 400 MG TAB ONE (19:51)
[2023-02-19] MEDS ORDERED: Sodium Chloride 0.9% 500 ML ONE ×2 (19:51→23:33)
== END 2023-02-20 00:18 | disposition short-term general hospital (02) ==
LOC: MADERS 17:51
DX: E87.1 Hypo-osmolality and hyponatremia (principal); N17.9 Acute kidney failure, unspecified; E83.42 Hypomagnesemia; E87.8 Other disorders of electrolyte and fluid balance, not elsewhere classified; E03.9 Hypothyroidism, unspecified; I10 Essential (primary) hypertension; E78.5 Hyperlipidemia, unspecified; Z87.891 Personal history of nicotine dependence; Z79.899 Other long term (current) drug therapy
CPT/HCPCS: 71045; 83735; 83880; 83930; 84484; 85025; 93005; 96360; 96361; J7030